=== PATIENT | male | born 1955 | race Caucasian/White ===

== ENCOUNTER 2020-04-18 21:41 | Emergency (ER) | payer MEDICARE ==
[2015-03-17 11:13] VITALS: BP 138/76
[~2020-04-18 21:41] MED LIST: ASPIRIN 32325 MG/TAB PO
== END 2020-04-18 21:55 | disposition left against medical advice (07) ==
LOC: ED 21:41
DX: R69 Illness, unspecified (principal); Z53.21 Procedure and treatment not carried out due to patient leaving prior to being seen by health care provider; Z79.82 Long term (current) use of aspirin

== ENCOUNTER → 2020-04-30 | Outpatient (CLI) | payer MEDICARE ==
[2015-03-17 11:13] VITALS: BP 138/76
== END ==
LOC: RAD 13:28
DX: S20.211A Contusion of right front wall of thorax, initial encounter (principal)

== ENCOUNTER → 2020-07-16 | Outpatient (CLI) | payer MEDICARE ==
[2015-03-17 11:13] VITALS: BP 138/76
== END ==
LOC: RAD 09:57
DX: M54.6 Pain in thoracic spine (principal)

== ENCOUNTER → 2020-07-24 | Outpatient (CLI) | payer MEDICARE, BC ==
[2015-03-17 11:13] VITALS: BP 138/76
[2020-07-24 10:41] LABS: HEMOGLOBIN 16.6 g/dL (13.5-18.0); MEAN CELL VOLUME 96 fl (78-100); MEAN CORPUSCULAR HEMOGLOBIN 33 pg (27-31); MEAN CORPUSCULAR HGB CONC 34 g/dL (33-37); MEAN PLATELET VOLUME 9.1 fl (7.4-10.4); PLATELET COUNT 166 K/mm3 (130-400); RED BLOOD COUNT 5.11 M/mm3 (4.20-5.60); RED CELL DISTRIBUTION WIDTH 13.4 % (11.5-14.5); WHITE BLOOD COUNT 8.4 K/mm3 (4.8-10.8)
[2020-07-24 10:51] LABS: POTASSIUM 4.2 mmol/L (3.5-5.1)
[2020-07-24 10:52] LABS: CALCIUM 9.3 mg/dL (8.3-10.5)
[2020-07-24 10:54] LABS: TOTAL PROTEIN 6.9 g/dL (6.2-8.1)
[2020-07-24 10:55] LABS: TOTAL BILIRUBIN 0.4 mg/dL (0.2-1.2)
[2020-07-24 11:51] LABS: ERYTHROCYTE SEDIMENTATION RATE 1 mm/hr (0-20)
== END ==
LOC: AMSURD 10:23 → LAB 10:23
PROVIDERS: Internal Medicine
DX: Z12.5 Encounter for screening for malignant neoplasm of prostate (principal); I10 Essential (primary) hypertension; E78.2 Mixed hyperlipidemia; M54.2 Cervicalgia

== ENCOUNTER → 2020-07-28 | Outpatient (CLI) | payer MEDICARE ==
[2015-03-17 11:13] VITALS: BP 138/76
== END ==
LOC: RAD 08:11
DX: M48.02 Spinal stenosis, cervical region (principal); M43.12 Spondylolisthesis, cervical region; M89.38 Hypertrophy of bone, other site

== ENCOUNTER → 2021-02-17 | Outpatient (CLI) | payer MEDICARE, BC | LOC: RAD 07:12 | DX: J15.9 Unspecified bacterial pneumonia (principal) ==

== ENCOUNTER → 2021-08-09 | Day surgery (SDC) | payer MEDICARE, BC | END | disposition home or self-care (01) | LOC: MSO 07:40 | DX: D17.1 Benign lipomatous neoplasm of skin and subcutaneous tissue of trunk (principal); F17.210 Nicotine dependence, cigarettes, uncomplicated | CPT/HCPCS: J1885; J2405; J2704; J3010; J7120 ==

== ENCOUNTER → 2023-02-13 | Outpatient (CLI) | payer MEDICARE, BC ==
[2023-02-13 09:57] LABS: BASO # 0.04 K/mm3 (0.02-0.10); EOS # 0.28 K/mm3 (0.04-0.40); EOS % 3.9 % (0.0-4.0); HEMATOCRIT 48.9 % (42.0-52.0); HEMOGLOBIN 16.4 g/dL (13.5-18.0); LYMPH# 1.42 K/mm3 (1.50-4.00); MEAN CELL VOLUME 100 fl (78-100); MEAN CORPUSCULAR HEMOGLOBIN 33 pg (27-31); MEAN CORPUSCULAR HGB CONC 34 g/dL (33-37); MEAN PLATELET VOLUME 8.9 fl (7.4-10.4); MONO # 1.08 K/mm3 (0.20-0.80); NEU # 4.36 K/mm3 (1.40-6.50); PLATELET COUNT 179 K/mm3 (130-400); RED BLOOD COUNT 4.91 M/mm3 (4.20-5.60); RED CELL DISTRIBUTION WIDTH 12.8 % (11.5-14.5); WHITE BLOOD COUNT 7.2 K/mm3 (4.8-10.8)
[2023-02-13 10:26] LABS: POTASSIUM 4.5 mmol/L (3.5-5.1)
[2023-02-13 10:28] LABS: CALCIUM 9.9 mg/dL (8.3-10.5)
[2023-02-13 10:29] LABS: TOTAL PROTEIN 7.1 g/dL (6.2-8.1)
[2023-02-13 10:31] LABS: TOTAL BILIRUBIN 0.5 mg/dL (0.2-1.2)
[2023-02-13 10:36] LABS: MAGNESIUM 2.03 mg/dL (1.60-2.60)
[2023-02-13 13:18] LABS: ERYTHROCYTE SEDIMENTATION RATE 7 mm/hr (0-20)
[2023-02-13 22:25] LABS: HEPATITIS C VIRUS ANTIBODY Negative (Negative)
[2023-02-13 23:07] LABS: TESTOSTERONE 1096 ng/dL (221-716)
== END ==
LOC: LAB 09:26
PROVIDERS: Internal Medicine
DX: Z12.5 Encounter for screening for malignant neoplasm of prostate (principal); Z12.11 Encounter for screening for malignant neoplasm of colon; Z11.59 Encounter for screening for other viral diseases; I10 Essential (primary) hypertension; E78.2 Mixed hyperlipidemia; F52.21 Male erectile disorder; M54.12 Radiculopathy, cervical region; M43.25 Fusion of spine, thoracolumbar region

== ENCOUNTER → 2024-03-05 | Outpatient (CLI) | payer MEDICARE, BC ==
[2024-03-05 12:36] LABS: CALCIUM 9.5 mg/dL (8.3-10.5)
[2024-03-05 12:37] LABS: TOTAL PROTEIN 6.8 g/dL (6.2-8.1)
[2024-03-05 12:39] LABS: TOTAL BILIRUBIN 0.6 mg/dL (0.2-1.2)
[2024-03-05 12:44] LABS: BASO # 0.03 K/mm3 (0.02-0.10); EOS # 0.19 K/mm3 (0.04-0.40); EOS % 2.4 % (0.0-4.0); HEMATOCRIT 49.8 % (42.0-52.0); LYMPH# 2.12 K/mm3 (1.50-4.00); MAGNESIUM 1.78 mg/dL (1.60-2.60); MEAN CELL VOLUME 99 fl (78-100); MEAN CORPUSCULAR HEMOGLOBIN 34 pg (27-31); MEAN CORPUSCULAR HGB CONC 34 g/dL (33-37); MEAN PLATELET VOLUME 9.4 fl (7.4-10.4); MONO # 0.77 K/mm3 (0.20-0.80); PLATELET COUNT 175 K/mm3 (130-400); RED BLOOD COUNT 5.04 M/mm3 (4.20-5.60); RED CELL DISTRIBUTION WIDTH 12.7 % (11.5-14.5)
== END ==
LOC: LAB 11:45
PROVIDERS: Internal Medicine
DX: Z12.5 Encounter for screening for malignant neoplasm of prostate (principal); Z12.11 Encounter for screening for malignant neoplasm of colon; I10 Essential (primary) hypertension; E78.2 Mixed hyperlipidemia; R20.2 Paresthesia of skin

== ENCOUNTER → 2024-04-05 | Outpatient (CLI) | payer MEDICARE, BC ==
[~2024-04-05] VITALS: Ht 180.3 cm; Wt 81.2 kg
[~2024-04-05] MED LIST changes: +Regadenoson 0.08 MG/ML 5 ML VIAL IV SCH
== END ==
LOC: CARDREHAB 04-02 08:00
DX: R06.00 Dyspnea, unspecified (principal)
CPT/HCPCS: A9500; J2785

== ENCOUNTER → 2024-04-05 | Outpatient (CLI) | payer MEDICARE, BC ==
[~2024-04-05] MED LIST changes: -Regadenoson 0.08 MG/ML 5 ML VIAL IV SCH
== END ==
LOC: AMSURD 11:51
DX: R00.0 Tachycardia, unspecified (principal)